=== PATIENT | female | born 1995 | race African-American/Black ===

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

== ENCOUNTER 2017-02-13 02:54 | Emergency (ER) | payer OTHER ==
[~2017-02-13] VITALS: Ht 167.6 cm; Wt 73.5 kg
[~2017-02-13 02:54] MED LIST changes: +PERCOCET 7.5-31 EACH PO
[2017-02-13] MEDS ORDERED: ZOFRAN ODT4 MG PO (04:33)
== END 2017-02-13 04:50 | disposition home or self-care (01) ==
LOC: ER 02:54
DX: S00.83XA Contusion of other part of head, initial encounter (principal); F10.120 Alcohol abuse with intoxication, uncomplicated; Z91.018 Allergy to other foods; Z88.0 Allergy status to penicillin; W22.8XXA Striking against or struck by other objects, initial encounter; Y93.89 Activity, other specified; Y92.89 Other specified places as the place of occurrence of the external cause; Y99.8 Other external cause status